=== PATIENT | male | born 1990 | race Caucasian/White ===

== ENCOUNTER 2017-10-13 16:36 | Emergency (ER) | payer OTHER ==
[~2017-10-13] VITALS: Ht 182.9 cm; Wt 108.1 kg
[2017-10-13 16:43] VITALS: BP 169/80
== END 2017-10-13 17:50 | disposition home or self-care (01) ==
LOC: ED 17:29
DX: S05.02XA Injury of conjunctiva and corneal abrasion without foreign body, left eye, initial encounter (principal); X58.XXXA Exposure to other specified factors, initial encounter; Y93.89 Activity, other specified; Y99.8 Other external cause status; Y92.89 Other specified places as the place of occurrence of the external cause
CPT/HCPCS: 99283